=== PATIENT | male | born 1995 | race Caucasian/White ===

== ENCOUNTER 2020-03-20 10:31 | Emergency (ER) | payer MEDICARE, SELFPAY ==
[2020-03-20 11:12] VITALS: BP 117/79; PULSE 92; RESP 17; O2SAT 99; BMI 31.8
--- NOTE | 2020-03-20 11:46 | XR_ITS ---
EXAMINATION: XR HIP, RIGHT CLINICAL INFORMATION: Pain. Trauma. COMPARISON: None TECHNIQUE: Two views of the right hip. FINDINGS: The femoral head appears laterally subluxed with respect to the acetabulum. The acetabulum appears abnormally shaped. There is question of an old healed inferior acetabular fracture. There is a osteophyte proliferative bone reaction of the superior acetabulum. There is a question of old healed fracture of the right proximal femoral shaft. Soft tissues are unremarkable. Bones of the pelvis are otherwise unremarkable. There is rotatory scoliosis of the visualized lower lumbar spine to the left. XR/XR hip RT w PEL1V IMPRESSION: Abnormal appearing right hip. There is lateral subluxation of the femoral head with respect to the acetabulum. There is evidence of old trauma to the acetabulum and question right proximal femoral shaft. There are degenerative changes of the superior acetabulum. It is uncertain whether the abnormal right hip alignment is acute or chronic.
--- NOTE | 2020-03-20 11:58 | ED_ITS ---
HPI - Extremity Injury (Lower) General Chief Complaint: Extremity Injury, Lower Stated Complaint: Abd pain, fall Time Seen by Provider: 03/20/20 11:24 Source: patient Mode of arrival: ambulatory Limitations: no limitations History of Present Illness HPI Narrative: 24 yo male with past medical history of scoliosis tells me yesterday he was walking up hill and lost his balance causing twisting injury of his right hip. Did not fall to the ground. Did not his head or lose consciousness. Patient home the set increasing pain since then. Pain does not radiate. No numbness or tingling. No back pain. No saddle anesthesia. Took motrin with no relief MD complaint: hip injury Onset (ago): day(s) Type of Injury: other (twisting ) Place: other (public place) Severity: mild Relieving factors: nothing Exacerbating factors: nothing Other symptoms: none Related Data Previous Rx's Medication Instructions Recorded hydrocodone-acetaminophen 1 tab PO Q6H PRN #10 tab 03/20/20 ibuprofen 800 mg PO Q8H PRN #20 tab 03/20/20 Allergies Allergy/AdvReac Type Severity Reaction Status Date / Time No Known Allergies Allergy Verified 03/20/20 11:46 Review of Systems Review of Systems: Yes all other systems are reviewed and are negative Constitutional: Constitutional: Reports no additional constitutional complaints, Denies body ache(s), Denies chills, Denies fever(s), Denies headache(s) and Denies weakness Eyes: Eyes: Reports no additional eye complaints and Denies change in vision ENT: Reports system reviewed and no additional complaints, except as documented, Denies dizziness, Denies headache(s), Denies nasal congestion, Denies nasal discharge and Denies neck pain Cardiovascular: Cardiovascular: Reports no additional cardiovascular complaints, Denies chest pain, Denies leg edema and Denies dyspnea Respiratory: Respiratory: Reports no additional respiratory complaints, Denies cough and Denies dyspnea Gastrointestinal: Gastrointestinal: Reports no additional gastrointestinal complaints, Denies abdominal pain, Denies diarrhea, Denies nausea and Denies vomiting Genitourinary: Genitourinary: Denies urinary incontinence Musculoskeletal: Musculoskeletal: Reports no additional musculoskeletal complaints, Denies back pain, Reports arthralgias, Denies joint swelling, Denies neck pain, Denies numbness and Denies tingling Integumentary/Breasts: Skin/Breast: Reports system reviewed and no additional complaints, except as docu and Denies rash Neurologic: Reports system reviewed and no additional complaints, except as documented, Denies Abnormal speech present, Denies dizziness, Denies headache(s), Denies numbness, Denies tingling and Denies weakness PMFSH Past Medical History Attestation statement: The following information was validated with the patient. Source: obtained from family and nursing notes reviewed Social History Social History Alcohol intake: never Smoking Status: Never smoker Smoked in Last 30 Days: No Use of substances other than those prescribed or required for medical reasons: No Advance Directives: No Advance Directives Information Provided: Yes Physical Exam Vital Signs: Vital Signs: Last Vital Signs Temp 97.7 F 03/20/20 14:31 Pulse 84 03/20/20 14:31 Resp 18 03/20/20 14:31 BP 109/52 L 03/20/20 14:31 Pulse Ox 97 03/20/20 14:31 Body Mass Index 31.8 Const: General: cooperative, healthy appearing, comfortable and no acute d istress Orientation/consciousness: patient oriented x3 Limitations: no limitations HENMT: Head: Yes normal to inspection Ears: hearing grossly normal bilaterally General nose exam: Normal external nose present Face and sinus: Yes normal facial exam Mouth: Normal oral and palatal mucosa present Throat: Yes posterior oropharynx normal Eyes: General: appearance normal, both eyes and all related structures Pupils: Equal, round and reactive pupils present Neck: Neck: Yes normal visual inspection Chest: Chest palpation & inspection: normal inspection of the chest Resp: Effort & Inspection: normal respiratory effort Auscultation: clear to auscultation bilaterally Cardio: Rate: regular rate Rhythm: regular rhythm Peripheral pulses: Peripheral pulses 2+ throughout GI: Inspection: Yes normal to inspection Palpation (GI): Soft to palpation and nontender Auscultation: normal bowel sounds Back/Spine/Pelvis: Thoracic/Lumbar Spine: thoracic and lumbar spine normal to inspection Skin: General skin exam: no rashes or lesions noted Neuro: General: patient oriented x3, no focal motor deficits and normal sensation to monofilament Cranial nerves: Yes Equal, round and reactive pupils present Cognition (Neuro): normal cognition Speech: No Abnormal speech present Gait exam (Neuro): Normal gait present Motor exam (neuro): 5/5 motor strength present throughout Extrem: Other: pain to the right lateral hip. Patient has pain with straight leg raise. Full range of motion with internal rotation and external rotation abduction and adduction. NV intact distlly. General: Yes normal to inspection Course Course Course Narrative: Tenderness over the lateral hip status post twisting injury yesterday. Patient is able to abduct and adduct the hip as well as rotate with no difficulty. Pain is more with straight leg raise. There is no shortening or rotation or deformity noting. Patient does tell me that yesterday he was able to walk with some mild discomfort but today only able to take 1-2 steps without experiencing severe pain. Will check imaging. 1330- x-ray is concerning for lateral subluxation of the femoral head with respect to the acetabulum. Evidence possible old trauma to the acetabulum and question right proximal femoral shaft. Degenerative changes noted. Discussed with Dr. Metcalf from Orthopedics. Recommended obtaining CT of the right hip for further evaluation. 1500- Ct shows chronic deformity of the right acetabulum with prominence of the acetabular cup and anterosuperior corticated osseous fragment, which may represent a remote fracture fragment. The femoral head is subluxed laterally and proximally. Chronicity of the subluxation is unknown as there is no associated acute fracture. Findings may be the sequela of remote trauma versus chronic congenital malformation. Right hip superior joint space narrowing and large joint effusion. Adjacent soft tissue edema without soft tissue mass or fluid collection. Discussed with Dr Metcalf from orthopedics. Likely chronic changes with acute injury with associated effusion and edema. Recommended f/u with orthopedics outpatient Sunday, crutches and NSAIDS. Discussed with patient with correspondence specialist. Tells me tomorrow he is flying home to [place]. Given paper copies of reports. He will f/u there. reviewed worrisome signs and symptoms and when to return to the emergency department. Comfortable with discharge home. MDM - Extremity Injury (Lower) Medical Records Attestation: I reviewed the patient's medical records. Lab Data Attestation: I reviewed the patient's lab results. Imaging Data hip x-ray: Attestation: I personally reviewed and interpreted this imaging study as follows: Radiologist's impression: FINDINGS: The femoral head appears laterally subluxed with respect to the acetabulum. The acetabulum appears abnormally shaped. There is question of an old healed inferior acetabular fracture. There is a osteophyte proliferative bone reaction of the superior acetabulum. There is a question of old healed fracture of the right proximal femoral shaft. Soft tissues are unremarkable. Bones of the pelvis are otherwise unremarkable. There is rotatory scoliosis of the visualized lower lumbar spine to the left. XR/XR hip RT w PEL1V IMPRESSION: Abnormal appearing right hip. There is lateral subluxation of the femoral head with respect to the acetabulum. There is evidence of old trauma to the acetabulum and question right proximal femoral shaft. There are degenerative changes of the superior acetabulum. It is uncertain whether the abnormal right hip alignment is acute or chronic. CT hip: Attestation: I personally reviewed and interpreted this imaging study as follows: Radiologist's impression: CT/CT hip RT wo con IMPRESSION: 1. Chronic deformity of the right acetabulum with prominence of the acetabular cup and anterosuperior corticated osseous fragment, which may represent a remote fracture fragment. The femoral head is subluxed laterally and proximally. Chronicity of the subluxation is unknown as there is no associated acute fracture. Findings may be the sequela of remote trauma versus chronic congenital malformation. 2. Right hip superior joint space narrowing and large joint effusion. 3. Adjacent soft tissue edema without soft tissue mass or fluid collection. Discharge Plan Discharge Clinical Impression: Hip subluxation Qualifiers: Encounter type: initial encounter Laterality: right Qualified Code(s): S73.001A - Unspecified subluxation of right hip, initial encounter Patient Disposition: Home, Self-Care Instructions: Hip Pain (ED) Additional Instructions: Limit weight bearing Ice, elevation Sunday call orthopedics to be seen Prescriptions: New ibuprofen 800 mg tablet 800 mg PO Q8H PRN (Reason: pain) Qty: 20 RF: 0 hydrocodone-acetaminophen 5-300 mg tablet 1 tab PO Q6H PRN (Reason: pain) Qty: 10 RF: 0 Referrals: Jaciel Metcalf MD [Physician] - 2 days Interventions: ED Discharge Assessment Last Done: 03/20/20 16:07 Discharge Date/Time: 03/20/20 16:08 Print Language: German
--- NOTE | 2020-03-20 13:19 | CT_ITS ---
EXAMINATION: CT HIP WITHOUT CONTRAST, RIGHT CLINICAL INFORMATION: Abnormal radiographs. Pain. Trauma. COMPARISON: Right hip radiographs dated 03/20/2020. TECHNIQUE: Contiguous axial CT images of the right hip were obtained without contrast. Multiplanar reformats were provided and reviewed. This CT examination was performed using dose optimization techniques as appropriate, variously including the following: *Automated exposure control *Adjustment of mA and/or kV according to patient size (this includes techniques or standardized protocols for targeted exams where dose is matched to indication/reason for exam; i.e. extremities or head) *Use of iterative reconstruction technique DLP: 299 mGy-cm FINDINGS: There is chronic deformity of the right acetabulum with prominence of the acetabular cup. There is deformity along the anterior aspect of the acetabular rim with an irregular corticated osseous fragment measuring up to 3.1 cm, likely representing a remote fracture fragment versus dystrophic calcification. There is a posteroinferior osseous fragment measuring 1.0 cm, which may represent a remote fracture fragment versus loose body. Additionally, there is irregularity of the proximal femoral diaphysis. Bony remodeling and irregularities may be the sequela of prior trauma versus a chronic congenital malformation with associated degenerative change. There is severe superior joint space narrowing with associated subchondral sclerosis. The femoral head is subluxed laterally, proximally, and slightly posteriorly. Acuity of the subluxation is unknown as there is no associated acute fracture fragment. Large right hip joint effusion with adjacent soft tissue edema. No abnormal soft tissue mass or fluid collection. The visualized intrapelvic structures are unremarkable. CT/CT hip RT wo con IMPRESSION: 1. Chronic deformity of the right acetabulum with prominence of the acetabular cup and anterosuperior corticated osseous fragment, which may represent a remote fracture fragment. The femoral head is subluxed laterally and proximally. Chronicity of the subluxation is unknown as there is no associated acute fracture. Findings may be the sequela of remote trauma versus chronic congenital malformation. 2. Right hip superior joint space narrowing and large joint effusion. 3. Adjacent soft tissue edema without soft tissue mass or fluid collection.
[2020-03-20] MEDS: Acetaminophen 325 MG TABLET 975 MG PO (13:42)
[2020-03-20] MEDS: oxyCODONE HCl Immed Release 5 MG TABLET PO (13:45)
[2020-03-20 14:31] VITALS: BP 109/52; PULSE 84; RESP 18; TEMP 36.5; O2SAT 97
[2020-03-20] MEDS: Ketorolac Tromethamine 60 MG/2 ML VIAL IM (16:03)
== END 2020-03-20 16:08 | disposition home or self-care (01) ==
PROVIDERS: Emergency Provider Emergency Medicine
DX: S73.001A Unspecified subluxation of right hip, initial encounter (principal); M25.551 Pain in right hip; X50.1XXA Overexertion from prolonged static or awkward postures, initial encounter; Y93.01 Activity, walking, marching and hiking; Y92.9 Unspecified place or not applicable; Y99.9 Unspecified external cause status; Z79.899 Other long term (current) drug therapy
CPT/HCPCS: 73502; 73700; 96372; 99284; J1885